=== PATIENT | female | born 1955 | race Caucasian/White ===

== ENCOUNTER 2024-02-14 09:34 | Emergency (ER) | payer MEDICARE, SELFPAY ==
[2024-02-14 09:35] VITALS: BP 160/108
--- NOTE | 2024-02-14 10:09 | ED.GENMED ---
History of Present Illness
General
Chief Complaint: Musculo-Skeletal Complaint
Source: patient
Exam Limitations: none
Time Seen by Provider: 02/14/24 09:53
Nursing documentation reviewed up to this point in time: agreed with
Travel History
Have you had any contact with someone who has COVID-19?: No
Do you have any symptoms of coronavirus? Fever > 100 degrees, chills, cough, shortness of breath, sore throat, loss of taste or smell, muscle aches, or headache?: No
History of Present Illness
History of Present Illness:
68 y/o F with h/o F with h/o HTN on metoprolol
here with L great toe pain after getting pulled by her dog while walking him today around 830
pt says the dog noticed another dog so she was pulled in a dirction and felt her toe move in a certain way but isn't sure exactly how
she has pain and limited weight bearing tot he great toe
has known bunions and arthritis
no meds taken
can put weight on heel
no wounds
she feels that her toe appears like it is pointing laterally
Past History
Past History
ED Past Medical History: HTN
ED Past Surgical History: None
Social History
Tobacco: Non-smoker
Review of Systems
Review of Systems
Allergies reviewed?: Yes
All Other Systems: Not applicable
Phy Exam
Physical Exam
Physical Exam:
GENERAL: Alert , in no apparent distress, comfortable at rest
HEAD: NCAT
CV: 2+ DP PULSES B/L
NEUROLOGICAL: Alert and oriented, no focal neuro deficits, , 5/5 strength, sensation intact, ambulation slight limp left leg
SKIN: Warm and dry, slightly pink skin, no wounds
MUSCULOSKELETAL: L great toe slightly swollen distally; hallux valgus prominent, nontender
limited flexino of the toe due to pain at IPJ
normal sensation
no deformity
PSYCH: Normal and appropriate interaction.
Course
Orders/Labs/Results
Orders:
Orders
02/14/24 09:37
Toes 2 Views, Left CR [CR Toe(s) Min 2 Vw Left] Urgent
Comment:
Reason For Exam: pain
Indicate Which Toe:: Great
02/14/24 10:09
Ibuprofen [Motrin] 600 mg PO NOW STA
Vital Signs
Initial and Last Documented VS:
Initial Vital Signs
Temp Pulse Resp BP Pulse Ox
98.2 F 74 20 160/108 96
02/14/24 09:35 02/14/24 09:35 02/14/24 09:35 02/14/24 09:35 02/14/24 09:35
Last Documented Vital Signs
Temp Pulse Resp BP Pulse Ox
98.2 F 64 15 152/79 96
02/14/24 09:35 02/14/24 10:17 02/14/24 10:17 02/14/24 10:17 02/14/24 09:35
MDM/Problems Addressed
Differential Diagnosis Includes:
toe fracture, contusion, sprain
MDM/Problems Addressed:
68 y/o F with htn
here with L great toe pain after being pulled by her dog while she was wearing flip flops
she has pain at IPJ
she feels it looks slightly angulated but on exma there is no deformity
she has a large hallux valgus
xray indep reviewed by me, pt has a lot of DJD so i spoke with radiologist dr perez who sees nondisplaced distal phalanx fx and severe OA
jeanne tape
hard sole shoe
podiatry
appreciate elevated bp, ikely in setting of pain
asymptomatic
repeat ah ome
*Critical Care Note
Total Time (30-74mins, 75-104mins- exclusive of procedures): Not Applicable
ED Attending Note
-
Portions of this chart may have been created with voice recognition software.� Occasional wrong word or��sound alike� substitutions may have occurred due to the inherent limitations of voice recognition software.
Discharge Plan
Departure
Patient Disposition: Home (Routine Discharge)
Date of Disposition: 02/14/24
Time of Disposition: 10:31
Patient with high blood pressure during this ER visit?: Yes
Condition: Fair
Covid-19: Not Applicable
Discharge Problem:
Closed fracture of toe
Instructions: Toe Injury (DC), BLOOD PRESSURE
Referrals:
Eligio Moreno DPM [Active] - Follow up in 5-7 days (ortho podiatry)
Activity Restrictions/Additional Instructions:
You did break your great toe. You should keep it jeanne taped to the second toe by placing a padding in between and then taping the bottom and the top of the toes together. You can remove this when you shower. Use the hard soled shoe when you
walk. Try to ice and stay off of it today. Take Motrin for pain. Follow-up with podiatry.
Return for any concerns
Your blood pressure was elevated, make sure to have this rechecked
Interventions
Interventions:
*Risk Screen - Suicide Last Done: 02/14/24 09:57
*Neglect/Abuse Screening Last Done: 02/14/24 09:57
*ED COVID-19 Vaccine History Last Done: 02/14/24 09:35
ED-Musculoskeletal Assessment Last Done: 02/14/24 09:57
Discharge Date and Time
Print Language: CZECH
[2024-02-14] MEDS: MOTRIN 600 MG PO (10:13)
[2024-02-14 10:17] VITALS: BP 152/79
== END 2024-02-14 11:09 | disposition home or self-care (01) ==
LOC: EMR 09:34
PROVIDERS: EMERGENCY PHYSICIAN Emergency Medicine; FAMILY PHYSICIAN Family Medicine
DX: S92.425A Nondisplaced fracture of distal phalanx of left great toe, initial encounter for closed fracture (principal); X58.XXXA Exposure to other specified factors, initial encounter; M19.072 Primary osteoarthritis, left ankle and foot; R03.0 Elevated blood-pressure reading, without diagnosis of hypertension
CPT/HCPCS: 99283; 73660